=== PATIENT | male | born 1990 | race Caucasian/White ===

== ENCOUNTER 2018-02-24 11:52 | Emergency (ER) | payer BC ==
[2018-02-24] MEDS ORDERED: Sodium Chloride 0.9% 500 ML IV ONE (12:22)
[2018-02-24] MEDS ORDERED: LORazepam 2 MG/ML SDV IVPUSH ONE (12:22)
[2018-02-24] MEDS ORDERED: Glucagon,Human Recombinant 1 MG Vial IVPUSH ONE (12:25)
[2018-02-24] MEDS ORDERED: Sodium Chloride 0.9% 10 ML Syringe FLUSH PRN (12:25)
--- NOTE | 2018-02-24 12:47 | EDM.PDOC ---
ED HPI GENERAL MEDICAL PROBLEM - General Chief Complaint: Gastrointestinal Problem Stated Complaint: CANT KEEP FOOD OR WATER DOWN AND DIARRHEA Time Seen by Provider: 02/24/18 12:12 Source of Information: Reports: Patient, RN Notes Reviewed - History of Present Illness INITIAL COMMENTS - FREE TEXT/NARRATIVE: 27 year old male with sensation of food bolus stuck in his esophagus. This occured last evening after starting to eat a brat, ribs and potato salad. He has had this happen quite often in the past when "jsut starting to eat". He has always been able to push what is usually stuck meat or bread down with a drink of water. Last night that did not work. Continues to vomit this morning even when he tries to drink water. He feels like it is stuck upper chest. he also did start with diarrhea last last night with one further episode if diarrhea this AM a few hrs ago. Throat Pain Score (Numeric/FACES): 3 - Related Data Allergies Allergy/AdvReac Type Severity Reaction Status Date / Time No Known Allergies Allergy Verified 02/24/18 12:03 Home Meds: Home Meds SUMAtriptan Succinate [Imitrex] 25 mg PO DAILY PRN 02/24/18 [History] Past Medical History - Past Health History Medical/Surgical History: Denies Medical/Surgical History Social & Family History - Tobacco Use Smoking Status *Q: Never Smoker - Recreational Drug Use Recreational Drug Use: No ED ROS GENERAL - Review of Systems Review Of Systems: See Below Constitutional: Denies: Fever, Chills HEENT: Denies: Sinus Problem, Throat Pain Respiratory: Denies: Shortness of Breath, Wheezing, Pleuritic Chest Pain Cardiovascular: Denies: Chest Pain GI/Abdominal: Reports: Abdominal Pain (occasional mild cramps) ED EXAM, GI/ABD - Physical Exam Exam: See Below General Appearance: Alert, No Apparent Distress Throat/Mouth: Normal Inspection, Normal Oropharynx Neck: Normal Inspection, Supple. No: Lymphadenopathy (L), Lymphadenopathy (R) Respiratory/Chest: No Respiratory Distress, Lungs Clear, Normal Breath Sounds GI/Abdominal Exam: Soft, Non-Tender. No: Guarding Back Exam: Normal Inspection Extremities: Normal Inspection, Normal Range of Motion Neurological: Alert, Oriented, No Motor/Sensory Deficits Skin Exam: Warm, Dry, Normal Color Course - Vital Signs Last Recorded V/S: Last Vital Signs Temp 98.3 F 07/14/18 12:00 Pulse 88 02/24/18 12:00 Resp 16 02/24/18 12:00 BP 129/99 H 02/24/18 12:00 Pulse Ox 95 02/24/18 12:00 - Orders/Labs/Meds Orders: Active Orders 24 hr Category Date Time Status Peripheral IV Care [RC] . DIRECTED Care 02/24/18 12:25 Active Peripheral IV Insertion Adult [OM.PC] Stat Oth 02/24/18 12:22 Ordered Labs: Laboratory Tests 02/24/18 02/24/18 Range/Units 12:15 12:15 WBC 8.65 (4.23-9.07) K/mm3 RBC 5.62 (4.63-6.08) M/mm3 Hgb 16.3 (13.7-17.5) gm/L Hct 48.2 (40.1-51.0) % MCV 85.8 (79.0-92.2) fl MCH 29.0 (25.7-32.2) pg MCHC 33.8 (32.2-35.5) g/dl RDW Std Deviation 43.2 (35.1-43.9) fL Plt Count 288 (163-337) K/mm3 MPV 10.7 (9.4-12.3) fl Neut % (Auto) 64.1 (34.0-67.9) % Lymph % (Auto) 19.8 L (21.8-53.1) % Glascock % (Auto) 9.6 (5.3-12.2) % Eos % (Auto) 6.0 (0.8-7.0) Baso % (Auto) 0.3 (0.1-1.2) % Neut # (Auto) 5.54 H (1.78-5.38) K/mm3 Lymph # (Auto) 1.71 (1.32-3.57) K/mm3 Glascock # (Auto) 0.83 H (0.30-0.82) K/mm3 Eos # (Auto) 0.52 (0.04-0.54) K/mm3 Baso # (Auto) 0.03 (0.01-0.08) K/mm3 Sodium 142 (136-145) mEq/L Potassium 3.9 (3.5-5.1) mEq/L Chloride 106 (98-107) mEq/L Carbon Dioxide 24 (21-32) mEq/L Anion Gap 15.9 H (5-15) BUN 24 H (7-18) mg/dL Creatinine 1.2 (0.7-1.3) mg/dL Est Cr Clr Drug Dosing 84.50 mL/min Estimated GFR (MDRD) > 60 (>60) mL/min BUN/Creatinine Ratio 20.0 H (14-18) Glucose 98 (74-106) mg/dL Calcium 9.5 (8.5-10.1) mg/dL Total Bilirubin 1.0 (0.2-1.0) mg/dL AST 15 (15-37) U/L ALT 25 (16-63) U/L Alkaline Phosphatase 106 (46-116) U/L Total Protein 8.6 H (6.4-8.2) g/dl Albumin 4.5 (3.4-5.0) g/dl Globulin 4.1 gm/dL Albumin/Globulin Ratio 1.1 (1-2) Meds: Medications Discontinued Medications Generic Name Dose Route Start Last Admin Trade Name Freq PRN Reason Stop Dose Admin Glucagon 1 mg 02/24/18 12:25 02/24/18 12:33 Glucagen IVPUSH 02/24/18 12:26 1 mg ONETIME ONE Administration Sodium Chloride 500 mls @ 999 mls/hr 02/24/18 12:22 02/24/18 12:34 Normal Saline IV 02/24/18 12:52 999 mls/hr .BOLUS ONE Administration Lorazepam 0.5 mg 02/24/18 12:22 02/24/18 12:33 Ativan IVPUSH 02/24/18 12:23 0.5 mg ONETIME ONE Administration Sodium Chloride 10 ml 02/24/18 12:25 02/24/18 12:33 Saline Flush FLUSH 10 ml ASDIRECTED PRN Administration Keep Vein Open - Re-Assessments/Exams Free Text/Narrative Re-Assessment/Exam: 02/24/18 13:42 we did give glucagon IV, ativan 0.5 mg IV, and after a period of time had him drink some coke which pushed the fluid bolus down. At time of my exam a few minutes ago was able to drink water with no difficulty. Discharge instr. as documented. Departure - Departure Time of Disposition: 13:25 Disposition: Home, Self-Care 01 Condition: Fair Clinical Impression: Swallowing difficulty Qualifiers: Dysphagia type: unspecified Qualified Code(s): R13.10 - Dysphagia, unspecified - Discharge Information Referrals: PCP,None [Primary Care Provider] - Forms: ED Department Discharge Additional Instructions: cut and chew your food very carefully, see Dr Osborn, [facility] to consider endoscopy to look for cause of your swallowing difficulty, call [phone] for appt. Return to ED as needed. - My Orders Last 24 Hours: My Active Orders 02/24/18 12:22 Peripheral IV Insertion Adult [OM.PC] Stat 02/24/18 12:25 Peripheral IV Care [RC] . DIRECTED - Assessment/Plan Last 24 Hours: My Active Orders 02/24/18 12:22 Peripheral IV Insertion Adult [OM.PC] Stat 02/24/18 12:25 Peripheral IV Care [RC] . DIRECTED
== END 2018-02-24 13:37 | disposition home or self-care (01) ==
LOC: JD.ED 11:52
DX: R13.10 Dysphagia, unspecified (principal); Z79.899 Other long term (current) drug therapy
CPT/HCPCS: 36415; 80053; 85025; 96361; 96374; 96375; 99285; J1610; J2060; J7040; J7050; 99284